=== PATIENT | female | born 1970 | race Caucasian/White ===

== ENCOUNTER 2018-03-17 17:23 | Emergency (ER) | payer OTHER ==
[2018-03-17 17:37] VITALS: BP 111/78; PULSE 79; TEMP 97.3; BMI 32.5
[2018-03-17] MEDS ORDERED: DIPHTH,PERTUSS(ACELL),TET 0.5 ML DISP.SYRIN IM ONE (17:52)
--- NOTE | 2018-03-17 17:57 | PDOC ---
History of Present Illness <Vj Pruitt - Last Filed: 03/17/18 17:51> - General History Source: Patient Exam Limitations: No Limitations - History of Present Illness Initial Comments: 03/17/18 18:08 The patient is a 47 year old female with a significant past medical history of thyroid disease who presents to the emergency department for evaluation of laceration near the right eye. The patient reports reaching for her tunneller this morning and sustaining a laceration near the right eye after the glass pitcher from the tunneller toppled and struck her in the face around 7am. She reports mild pain near the right eye. The patient denies loss of consciousness, neck pain. No breakage of the pitcher. The patient reports a moderate amount of bleeding after leaving for work this morning, which stopped. The pt presents to the emergency department for further evaluation as she was not able to step away from work. At presentation, the laceration is not actively bleeding. The patient denies chest pain, changes in vision, n/v, headache, neck pain. Allergies: NKA Past surgical history: Patient denies. Does not recall last tetanus <Jaye Joyner - Last Filed: 03/17/18 18:15> - General Chief Complaint: Laceration Stated Complaint: MINOR LACERATION TO RIGHT UPPER EYELID Time Seen by Provider: 03/17/18 17:27 Past History - Past Medical History COPD: No Thyroid Disease: Yes - Immunization History Immunization Up to Date: No - Suicide/Smoking/Psychosocial Hx Smoking History: Never smoked Have you smoked in the past 12 months: No Information on smoking cessation initiated: No Hx Alcohol Use: No Drug/Substance Use Hx: No Substance Use Type: None <Vj Pruitt - Last Filed: 03/17/18 17:51> <Jaye Joyner - Last Filed: 03/17/18 18:15> - Past Medical History Allergies/Adverse Reactions: Allergies Allergy/AdvReac Type Severity Reaction Status Date / Time No Known Allergies Allergy Unverified 03/17/18 17:25 Home Medications: Ambulatory Orders Levothyroxine [Synthroid -] 175 mcg PO DAILY 03/17/18 *Physical Exam - Vital Signs Last Vital Signs Temp Pulse Resp BP Pulse Ox 97.3 F L 79 16 111/78 99 03/17/18 17:24 03/17/18 17:24 03/17/18 17:24 03/17/18 17:24 03/17/18 17:24 <Vj Pruitt - Last Filed: 03/17/18 17:51> - Vital Signs Last Vital Signs Temp Pulse Resp BP Pulse Ox 97.3 F L 79 16 111/78 99 03/17/18 17:24 03/17/18 17:24 03/17/18 17:24 03/17/18 17:24 03/17/18 17:24 <Jaye Joyenr - Last Filed: 03/17/18 18:15> Medical Decision Making - Medical Decision Making 03/17/18 17:52 47y F presents with complaint of laceration to the R eyelid. The pt statse she sustained a falling tunneller jar to the face this morning around 7am. there was bleeding that stopped on its own but pt was unabel to come to the ED until now. does not recall last tetanus. no complaints of headache, vision changes neck pain or othe rinjuries. pt with a 8mm lac to the lateral upper R eyelid already in process of healing with scab washed with gauze will update tetanus will have pt fu with pmd I discussed the physical exam findings, ancillary test results and final diagnoses with the patient. I answered all of the patient's questions. The patient was satisfied with the care received and felt comfortable with the discharge plan and treatment plan. The patient will call their primary care physician within 24 hours to arrange follow-up and will return to the Emergency Department with any new, persistent or worsening symptoms. A portion of this note was documented by scribe services under my direction. I have reviewed the details of the note, within reason, and agree with the documentation with the following case summary and management plan written by me <Vj Pruitt - Last Filed: 03/17/18 17:51> *DC/Admit/Observation/Transfer - Discharge Dispostion Decision to Admit order: No <Vj Pruitt - Last Filed: 03/17/18 17:51> <Jaye Joyner - Last Filed: 03/17/18 18:15> Diagnosis at time of Disposition: Laceration, eyelid, right Qualifiers: Encounter type: initial encounter Qualified Code(s): S01.111A - Laceration without foreign body of right eyelid and periocular area, initial encounter - Discharge Dispostion Disposition: HOME Condition at time of disposition: Stable - Referrals Referrals: [facility] [Non Staff, Medical] - - Patient Instructions Printed Discharge Instructions: DI for Minor Laceration Additional Instructions: Return to the emergency department immediately with ANY new, persistent or worsening symptoms including any redness, bleeding, purulent discharge, swelling or other concerns. Keep the area clean and dry for 48 hours. Afterwards he may clean gently with soap and water. Apply bacitracin twice a day. Keep the area away from the sun for the next 9 months, please use sunscreen and wear a hat if you need to be in the sun to improve appearance of the scar. You MUST call and follow up with your doctor tomorrow for further evaluation of your symptoms. Results were discussed with you. Please make sure your doctor reviews the results of your emergency evaluation.
== END 2018-03-17 18:19 | disposition home or self-care (01) ==
LOC: FER 17:23
PROC: 3E0234Z Introduction of Serum, Toxoid and Vaccine into Muscle, Percutaneous Approach (ICD-10-PCS; principal; 2018-03-17)
DX: S01.111A Laceration without foreign body of right eyelid and periocular area, initial encounter (principal); W45.8XXA Other foreign body or object entering through skin, initial encounter; Y93.89 Activity, other specified; Y92.000 Kitchen of unspecified non-institutional (private) residence as the place of occurrence of the external cause; E07.9 Disorder of thyroid, unspecified
CPT/HCPCS: 90471; 90715; 99282-25

== ENCOUNTER 2018-05-17 11:24 | Emergency (ER) | payer OTHER ==
--- NOTE | 2018-05-17 11:30 | PDOC ---
Suture Removal/Wound Check HPI - History of Present Illness Chief Complaint: Suture/Staple Removal(Here) Stated Complaint: LEFT EYEBROW AREA SUTURE REMOVAL Time Seen by Provider: 05/17/18 11:25 History Source: Yes: Patient Exam Limitations: Yes: No Limitations Treated at: [facility] ED - Previous ED Treatment Type of procedure performed on last visit: Yes: Laceration Repair - Onset of Previous Treatment Date of Occurence: 05/09/18 Comment:: 05/17/18 11:27 47 yo F c/ hx thyroid disorder p/w suture removal. On 05/09, in [place], a softball had bounced and accidentally hit patient over left face. Sustained a laceration to left lateral eyebrow. Was seen in [place] hospital and had 5 sutures placed. No other injuries. Denies fevers, chills. Past History - Past Medical History Allergies/Adverse Reactions: Allergies Allergy/AdvReac Type Severity Reaction Status Date / Time cefaclor [From Ceclor] Allergy Intermediate Hives Verified 05/13/18 20:30 Home Medications: Ambulatory Orders Levothyroxine [Synthroid -] 175 mcg PO DAILY 03/17/18 COPD: No Thyroid Disease: Yes - Immunization History Immunization Up to Date: No - Suicide/Smoking/Psychosocial Hx Smoking History: Never smoked Have you smoked in the past 12 months: No Hx Alcohol Use: No Drug/Substance Use Hx: No Substance Use Type: None Suture Removal/Wound Check PE - Physical Exam Comments: 05/17/18 11:27 GENERAL: Awake, alert, and fully oriented, in no acute distress HEAD: No signs of trauma EYES: PERRLA, EOMI, sclera anicteric, conjunctiva clear ENT: Auricles normal inspection, hearing grossly normal, nares paten NECK: Normal ROM, supple EXTREMITIES: Normal range of motion, no edema. No clubbing or cyanosis. No cords, erythema, or tenderness NEUROLOGICAL: Cranial nerves II through XII grossly intact. Normal speech, normal gait SKIN: Warm, Dry, normal turgor, no rashes or lesions noted. Well healed, well- granulated, nonerythematous closed wound to left lateral eyebrow with 5 sutures. *Review of Systems - Review of Systems Able to Perform ROS?: Yes Comments:: 05/17/18 11:29 GENERAL/CONSTITUTIONAL: No fever or chills. No weakness. HEAD, EYES, EARS, NOSE AND THROAT: No change in vision. No ear pain or discharge. No sore throat. CARDIOVASCULAR: No chest pain or shortness of breath. RESPIRATORY: No cough, wheezing, or hemoptysis. GASTROINTESTINAL: No nausea, vomiting, diarrhea or constipation. GENITOURINARY: No dysuria, frequency, or change in urination. MUSCULOSKELETAL: No joint or muscle swelling or pain. No neck or back pain. SKIN: + healed left lateral eyebrow wound with sutures. NEUROLOGIC: No headache, vertigo, loss of consciousness, or change in strength/ sensation. ENDOCRINE: No increased thirst. No abnormal weight change. HEMATOLOGIC/LYMPHATIC: No anemia, easy bleeding, or history of blood clots. ALLERGIC/IMMUNOLOGIC: No hives or skin allergy. Procedures - Additional Procedures Progress: 05/17/18 11:29 5 suture removed successfully Medical Decision Making - Medical Decision Making 05/17/18 11:29 Wound appears well healed. No infection appreciated. Scar precaution given. 5 sutures successfully removed. *DC/Admit/Observation/Transfer Diagnosis at time of Disposition: Visit for suture removal - Discharge Dispostion Disposition: HOME Condition at time of disposition: Good Decision to Admit order: No - Referrals Referrals: [facility] [Primary Care Provider] - - Patient Instructions Printed Discharge Instructions: DI for Suture Removal Additional Instructions: You have had your sutures removed today. - Post Discharge Activity
[2018-05-17 11:48] VITALS: BP 117/80; PULSE 94; TEMP 98.4; BMI 30.9
== END 2018-05-17 11:57 | disposition home or self-care (01) ==
LOC: FER 11:24
DX: Z48.02 Encounter for removal of sutures (principal)
CPT/HCPCS: 99282-25

== ENCOUNTER 2019-03-21 19:33 | Emergency (ER) | payer OTHER | END 2019-03-21 20:14 | disposition home or self-care (01) | LOC: FER 19:33 ==